=== PATIENT | female | born 1990 | race Caucasian/White ===

== ENCOUNTER 2019-09-19 22:07 | Emergency (ER) | payer OTHER ==
[2019-09-19 23:10] LABS: ABS Eosinophils 0.1 10^3/ul (0-0.6); ABS Lymphocytes 2.6 10^3/ul (1.0-4.8); ABS Monocytes 0.5 10^3/ul (0-0.8); ABS Neutrophils 7.1 10^3/ul (1.5-7.7); Eosinophil % 0.5 %; Hematocrit 32 % (35-47); Hemoglobin 11.5 g/dL (12.0-16.0); Lymphocyte % 25.6 %; Mean Corpuscular HGB Conc 35 g/dL (31-36); Mean Corpuscular Hemoglobin 33 pg (27-31); Mean Corpuscular Volume 93 fL (80-97); Nucleated Red Blood Cells % 0.1; Platelet Count 268 10^3/uL (150-450); Red Blood Count 3.47 10^6 /uL (3.70-4.87); Red Cell Distribution Width 12 % (10-15); White Blood Count 10.3 10^3/uL (3.5-10.8)
[2019-09-19 23:12] LABS: Urine Appearance Turbid; Urine Bilirubin Negative (Negative); Urine Blood Negative (Negative); Urine Color Yellow; Urine Glucose Negative (Negative); Urine Ketones Negative (Negative); Urine Nitrite Negative (Negative); Urine Protein Negative (Negative); Urine Specific Gravity 1.008 (1.010-1.030); Urine Urobilinogen Negative (Negative)
[2019-09-19 23:16] LABS: INR 0.91 (0.82-1.09)
[2019-09-19 23:26] LABS: Albumin 3.7 g/dL (3.2-5.2); Albumin/Globulin Ratio 1.5 (1-3); BUN/Creatinine Ratio 20.5 (8-20); Calcium 9.3 mg/dL (8.6-10.3); EGFR African American 203.2 (>60); EGFR Non-African American 167.9 (>60); Globulin 2.5 g/dL (2-4); Potassium 3.3 mmol/L (3.5-5.0); Total Bilirubin 0.2 mg/dL (0.2-1.0); Total Protein 6.2 g/dL (6.4-8.9)
--- NOTE | 2019-09-20 00:30 | ED ---
- HPI Summary HPI Summary: 29 year old female at 15 weeks presents with vaginal discharge today. She states she saw some potential tissue in the toilet. This happened a couple times today. She had trace amount of blood when she wiped. She states she's been having occasional cramping. Denies any urinary symptoms. She denies any nausea vomiting. She has had an ultrasound for this already. She follows up with [facility] [place]. She has history of fibroids and PCOS. - History of Current Complaint Chief Complaint: EDOBProblems Stated Complaint: 15 WEEKS PREG, DISCHARGE PER PT Time Seen by Provider: 09/19/19 22:45 Pain Intensity: 0 - Allergies/Home Medications Allergies/Adverse Reactions: Allergies Allergy/AdvReac Type Severity Reaction Status Date / Time No Known Allergies Allergy Verified 09/19/19 22:13 PMH/Surg Hx/FS Hx/Imm Hx Endocrine/Hematology History: Denies: Hx Anticoagulant Therapy Respiratory History: Denies: Hx Asthma Infectious Disease History: No Infectious Disease History: Denies: Traveled Outside the [place] in Last 30 Days - Family History Known Family History: Positive: Non-Contributory - Social History Alcohol Use: Occasionally Alcohol Amount: before Substance Use Type: Reports: None Smoking Status (MU): Never Smoked Tobacco Review of Systems Negative: Fever Negative: Chest Pain Negative: Shortness Of Breath Positive: Abdominal Pain, Other - vaginal discharge All Other Systems Reviewed And Are Negative: Yes Physical Exam - Physical Exam Triage Information Reviewed: Yes Vital Signs Reviewed: Yes Appearance: Positive: Well-Appearing Skin: Positive: Warm, Dry Head/Face: Positive: Normal Head/Face Inspection Eyes: Positive: Normal, Conjunctiva Clear ENT: Positive: Pharynx normal Respiratory/Lung Sounds: Positive: Clear to Auscultation, Breath Sounds Present Cardiovascular: Positive: Normal, RRR Abdomen Description: Positive: Nontender, Soft Bowel Sounds: Positive: Present Musculoskeletal: Positive: Normal Neurological: Positive: Normal Psychiatric: Positive: Normal Procedures - Sedation Patient Received Moderate/Deep Sedation with Procedure: No Diagnostics - Vital Signs Vital Signs Temp Pulse Resp BP Pulse Ox 09/19/19 22:08 98.7 F 102 16 134/106 99 - Laboratory Lab Results: Lab Results 09/19/19 09/19/19 09/19/19 Range/Units 22:55 22:59 22:59 WBC 10.3 (3.5-10.8) 10^3/uL RBC 3.47 L (3.70-4.87) 10^6 /uL Hgb 11.5 L (12.0-16.0) g/dL Hct 32 L (35-47) % MCV 93 (80-97) fL MCH 33 H (27-31) pg MCHC 35 (31-36) g/dL RDW 12 (10-15) % Plt Count 268 (150-450) 10^3/uL MPV 7.0 L (7.4-10.4) fL Neut % (Auto) 68.8 % Lymph % (Auto) 25.6 % Haakon % (Auto) 4.9 % Eos % (Auto) 0.5 % Baso % (Auto) 0.2 % Absolute Neuts (auto) 7.1 (1.5-7.7) 10^3/ul Absolute Lymphs (auto) 2.6 (1.0-4.8) 10^3/ul Absolute Monos (auto) 0.5 (0-0.8) 10^3/ul Absolute Eos (auto) 0.1 (0-0.6) 10^3/ul Absolute Basos (auto) 0.0 (0-0.2) 10^3/ul Absolute Nucleated RBC 0.0 10^3/ul Nucleated RBC % 0.1 INR (Anticoag Therapy) 0.91 (0.82-1.09) Sodium (135-145) mmol/L Potassium (3.5-5.0) mmol/L Chloride (101-111) mmol/L Carbon Dioxide (22-32) mmol/L Anion Gap (2-11) mmol/L BUN (6-24) mg/dL Creatinine (0.51-0.95) mg/dL Est GFR ( Amer) (>60) Est GFR (Non-Af Amer) (>60) BUN/Creatinine Ratio (8-20) Glucose (70-100) mg/dL Calcium (8.6-10.3) mg/dL Total Bilirubin (0.2-1.0) mg/dL AST (13-39) U/L ALT (7-52) U/L Alkaline Phosphatase (34-104) U/L Total Protein (6.4-8.9) g/dL Albumin (3.2-5.2) g/dL Globulin (2-4) g/dL Albumin/Globulin Ratio (1-3) Beta HCG, Quant mIU/mL Urine Color Yellow Urine Appearance Turbid Urine pH 8.0 (5-9) Ur Specific [place] 1.008 L (1.010-1.030) Urine Protein Negative (Negative) Urine Ketones Negative (Negative) Urine Blood Negative (Negative) Urine Nitrate Negative (Negative) Urine Bilirubin Negative (Negative) Urine Urobilinogen Negative (Negative) Ur Leukocyte Esterase Negative (Negative) Urine Glucose Negative (Negative) Blood Type Antibody Screen 09/19/19 09/19/19 Range/Units 22:59 22:59 WBC (3.5-10.8) 10^3/uL RBC (3.70-4.87) 10^6 /uL Hgb (12.0-16.0) g/dL Hct (35-47) % MCV (80-97) fL MCH (27-31) pg MCHC (31-36) g/dL RDW (10-15) % Plt Count (150-450) 10^3/uL MPV (7.4-10.4) fL Neut % (Auto) % Lymph % (Auto) % Haak[place] % (Auto) % Eos % (Auto) % Baso % (Auto) % Absolute Neuts (auto) (1.5-7.7) 10^3/ul Absolute Lymphs (auto) (1.0-4.8) 10^3/ul Absolute Monos (auto) (0-0.8) 10^3/ul Absolute Eos (auto) (0-0.6) 10^3/ul Absolute Basos (auto) (0-0.2) 10^3/ul Absolute Nucleated RBC 10^3/ul Nucleated RBC % INR (Anticoag Therapy) (0.82-1.09) Sodium 136 (135-145) mmol/L Potassium 3.3 L (3.5-5.0) mmol/L Chloride 104 (101-111) mmol/L Carbon Dioxide 27 (22-32) mmol/L Anion Gap 5 (2-11) mmol/L BUN 9 (6-24) mg/dL Creatinine 0.44 L (0.51-0.95) mg/dL Est GFR ( Amer) 203.2 (>60) Est GFR (Non-Af Amer) 167.9 (>60) BUN/Creatinine Ratio 20.5 H (8-20) Glucose 102 H (70-100) mg/dL Calcium 9.3 (8.6-10.3) mg/dL Total Bilirubin 0.20 (0.2-1.0) mg/dL AST 16 (13-39) U/L ALT 21 (7-52) U/L Alkaline Phosphatase 61 (34-104) U/L Total Protein 6.2 L (6.4-8.9) g/dL Albumin 3.7 (3.2-5.2) g/dL Globulin 2.5 (2-4) g/dL Albumin/Globulin Ratio 1.5 (1-3) Beta HCG, Quant 41531.00 mIU/mL Urine Color Urine Appearance Urine pH (5-9) Ur Specific [place] (1.010-1.030) Urine Protein (Negative) Urine Ketones (Negative) Urine Blood (Negative) Urine Nitrate (Negative) Urine Bilirubin (Negative) Urine Urobilinogen (Negative) Ur Leukocyte Esterase (Negative) Urine Glucose (Negative) Blood Type O Positive Antibody Screen Negative Result Diagrams: 09/19/19 22:59 09/19/19 22:59 Lab Statement: Any lab studies that have been ordered have been reviewed, and results considered in the medical decision making process. - Ultrasound No standard instances Ultrasound Interpretation Completed By: Radiologist Summary of Ultrasound Findings: IMPRESSION: Single live intrauterine corresponding with 15 weeks 1 day with LUIS ENRIQUE of 03/14/20, concordant with LMP. Cervical funneling is seen. Cervix measures 2.7 cm. Re-Evaluation - Re-Evaluation First Eval Comment: still comfortable Second Eval Re-Evaluation Time: 02:10 Comment: no pain currently Course/Dx - Course Course Of Treatment: 29 year old female at 15 weeks presents with vaginal discharge today. She states she saw some potential tissue in the toilet. This happened a couple times today. She had trace amount of blood when she wiped. She states she's been having occasional cramping. Denies any urinary symptoms. She denies any nausea vomiting. She has had an ultrasound for this already. She follows up with [facility] [place]. On exam has nontender abdomen. Blood type is O+. vaginal ultrasound shows iup with cervical funneling. discussed with dr valencia will not do anything tonight but needs to see ob later today. told to call for appointment. patient understand and agrees with plan. - Differential Diagnosis/HQI/PQRI: Spontaneous , Threatened , Intrauterine - Diagnoses Provider Diagnoses: Intrauterine , Cervical funneling Discharge ED - Sign-Out/Discharge Documenting (check all that apply): Patient Departure - Discharge Plan Condition: Good Disposition: HOME Forms: *Work Release Referrals: Arabella Bentley NP [Primary Care Provider] - Pipo Valencia JR, DO [Doctor of Osteopathy] - Additional Instructions: follow up with ob today, call office and tell them that you were seen in the ER and dr valencia says need to have appointment today pelvic rest until seen on ob Return to ED if develop any new or worsening symptoms - Billing Disposition and Condition Condition: GOOD Disposition: Home
[2019-09-20 02:22] VITALS: BP 111/79
== END 2019-09-20 02:19 | disposition home or self-care (01) ==
LOC: ED 22:07
DX: O26.872 Cervical shortening, second trimester (principal); Z3A.15 15 weeks gestation of pregnancy
CPT/HCPCS: 36415; 76815; 80053; 81003; 84702; 85025; 85610; 86850; 86900; 86901; 99282

== ENCOUNTER 2020-03-09 17:46 | Inpatient (IN) ==
[2020-03-09] MEDS ORDERED: Lactated Ringers 1000 ml BAG 1,000 ML IV ONE (19:32)
[2020-03-10 08:04] LABS: Urine Benzodiazepine Screen None Detected (None Detect); Urine Opiates Screen None Detected (None Detect)
[2020-03-10] MEDS ORDERED: Oxytocin in LR 20 UNITS/1,000 ML BAG IVPB SCH (10:00)
[2020-03-10 10:02] LABS: ABS Lymphocytes 1.8 10^3/ul (1.0-4.8); ABS Monocytes 0.4 10^3/ul (0-0.8); Eosinophil % 0.4 %; Hematocrit 34 % (35-47); Lymphocyte % 19.6 %; Mean Corpuscular HGB Conc 35 g/dL (31-36); Mean Corpuscular Hemoglobin 32 pg (27-31); Mean Corpuscular Volume 92 fL (80-97); Mean Platelet Volume 8.3 fL (7.4-10.4); Nucleated Red Blood Cells % 0.1; Platelet Count 212 10^3/uL (150-450); Red Blood Count 3.71 10^6 /uL (3.70-4.87); Red Cell Distribution Width 14 % (10-15); White Blood Count 9.2 10^3/uL (3.5-10.8)
[2020-03-10] MEDS: Lactated Ringers 1000 ml BAG 1,000 ML IV SCH ×2 (10:04→19:46)
[2020-03-10] MEDS ORDERED: OBEPIDURAL 250 ML EPIDURAL ONE (18:30)
[2020-03-10] MEDS ORDERED: Sodium Citrate/Citric Acid LIQ 15 ML UDC PO PRN (18:31)
[2020-03-10] MEDS ORDERED: Phenylephrine 40 mcg/mL 10mL (400mcg) SYRINGE IV PUSH PRN ×2 (18:31)
[2020-03-10] MEDS ORDERED: EPHEDrine (Pressors) 50 MG/ML VIAL IV PUSH PRN ×2 (18:31)
[2020-03-10] MEDS ORDERED: Lactated Ringers 1000 ml BAG 1,000 ML IV ONE (18:31)
[2020-03-10] MEDS ORDERED: OBEPIDURAL 250 ML EPIDURAL SCH (19:00)
[2020-03-10] MEDS ORDERED: Lactated Ringers 1000 ml BAG 1,000 ML IV SCH ×2 (19:00→23:00)
[2020-03-10] MEDS ORDERED: ceFOXitin 2 GM IVPREMIX (*) 2 GM/50 ML BAG ONE (20:52)
[2020-03-10] MEDS ORDERED: Lidocaine 2% PF 5 ML VIAL ONE (21:23)
[2020-03-10] MEDS ORDERED: Oxytocin 10 UNITS/ML 1 ML VIAL ONE (21:50)
[2020-03-10] MEDS ORDERED: Sodium Bicarbonate 8.4% 10 ML VIAL IV ONE (21:50)
[2020-03-10] MEDS ORDERED: Morphine PF AMP (0.5MG/ML) 5 MG/10 ML AMP ONE (21:54)
[2020-03-10] MEDS ORDERED: Phenylephrine 40 mcg/mL 10mL (400mcg) SYRINGE ONE (22:19)
[2020-03-10] MEDS ORDERED: Naloxone 0.4 mg VIAL 0.4 mg/ml 1 ml VIAL IV PRN ×2 (23:38→23:39)
[2020-03-10] MEDS ORDERED: Ondansetron 4 mg VIAL 2 MG/ML 2 ml VIAL IV PRN (23:39)
[2020-03-10] MEDS ORDERED: diPHENhydraMINE IV 50 MG/ML 1 ml VIAL (BENADRYL) IV PRN (23:39)
[2020-03-10] MEDS ORDERED: Naloxone 4 mg VIAL (10 ml) 2 MG in NS 0.9% 250 ml 250 ML IV PRN (23:39)
[2020-03-11 06:57] LABS: ABS Lymphocytes 1.7 10^3/ul (1.0-4.8); ABS Monocytes 0.6 10^3/ul (0-0.8); Eosinophil % 0.3 %; Hematocrit 28 % (35-47); Hemoglobin 10.3 g/dL (12.0-16.0); Lymphocyte % 16.7 %; Mean Corpuscular HGB Conc 36 g/dL (31-36); Mean Corpuscular Hemoglobin 34 pg (27-31); Mean Corpuscular Volume 93 fL (80-97); Mean Platelet Volume 8.1 fL (7.4-10.4); Platelet Count 161 10^3/uL (150-450); Red Blood Count 3.05 10^6 /uL (3.70-4.87); Red Cell Distribution Width 14 % (10-15); White Blood Count 10.4 10^3/uL (3.5-10.8)
[2020-03-13 08:26] VITALS: BP 114/74
== END 2020-03-13 11:30 | disposition home or self-care (01) | DRG 788 ==
LOC: MCHOBOUT 17:46 → MCHOB 18:21
PROVIDERS: ADMIT Obstetrics & Gynecology; ATTEND Obstetrics & Gynecology

== ENCOUNTER 2022-09-30 07:45 | Inpatient (IN) ==
[2022-10-04 06:32] LABS: ABS Lymphocytes 2.6 10^3/ul (1.0-4.8); ABS Monocytes 0.5 10^3/ul (0-0.8); ABS Neutrophils 7.2 10^3/ul (1.5-7.7); Eosinophil % 0.4 %; Hematocrit 36 % (35-47); Hemoglobin 12.5 g/dL (12.0-16.0); Lymphocyte % 24.9 %; Mean Corpuscular HGB Conc 35 g/dL (31-36); Mean Corpuscular Hemoglobin 32 pg (27-31); Mean Corpuscular Volume 92 fL (80-97); Nucleated Red Blood Cells % 0.1; Platelet Count 184 10^3/uL (150-450); Red Cell Distribution Width 14 % (10-15); White Blood Count 10.3 10^3/uL (3.5-10.8)
[2022-10-04] MEDS ORDERED: ceFOXitin 2 GM PREMIX 50 ML IVPB ONE (08:00)
[2022-10-04] MEDS ORDERED: Lactated Ringers 1000 ml BAG 1,000 ML IV ONE (08:35)
[2022-10-04] MEDS ORDERED: Buffered Lidocaine 1% SYRIN 1 ml INTRADERM ONE (08:35)
[2022-10-04] MEDS ORDERED: Lactated Ringers 1000 ml BAG 1,000 ML IV SCH ×2 (09:00→12:00)
[2022-10-04] MEDS ORDERED: Morphine PF AMP (0.5MG/ML) 5 MG/10 ML AMP ONE (09:06)
[2022-10-04] MEDS ORDERED: Oxytocin 10 UNITS/ML 1 ML VIAL ONE ×2 (09:07→09:55)
[2022-10-04] MEDS ORDERED: Sodium Citrate/Citric Acid LIQ 15 ML UDC ONE (09:07)
[2022-10-04] MEDS ORDERED: Bupivacaine 0.5% SDV PF 30ML VIAL ONE (09:07)
[2022-10-04] MEDS ORDERED: Phenylephrine 40 mcg/mL 10mL (400mcg) SYRINGE ONE (09:28)
[2022-10-04] MEDS ORDERED: Ondansetron 4 mg VIAL 2 MG/ML 2 ml VIAL ONE (09:55)
[2022-10-04] MEDS ORDERED: Dexamethasone IV 4 MG/ML VIAL 1 ml VIAL ONE (09:55)
[2022-10-04] MEDS ORDERED: Naloxone 0.4 mg VIAL 0.4 mg/ml 1 ml VIAL IV PRN (10:00)
[2022-10-04] MEDS ORDERED: fentaNYL 100 mcg/2 ml 50 MCG/ML VIAL IV PRN (10:00)
[2022-10-04] MEDS ORDERED: Naloxone 0.4 mg VIAL 0.4 mg/ml 1 ml VIAL IV PUSH PRN (10:02)
[2022-10-04] MEDS ORDERED: Metoclopramide 5 MG/ML VIAL (10 mg) IV PRN (10:02)
[2022-10-04] MEDS ORDERED: Acetaminophen IV 1 GM/100ML 1,000 MG/100 ML BAG IV PRN (10:02)
[2022-10-04] MEDS ORDERED: Ondansetron 4 mg VIAL 2 MG/ML 2 ml VIAL IV PRN (10:02)
[2022-10-04] MEDS ORDERED: Acetaminophen IV 1 GM/100ML 1,000 MG/100 ML BAG IV ONE (10:04)
[2022-10-04 10:59] LABS: Urine Appearance Cloudy; Urine Bilirubin Negative (Negative); Urine Blood Negative (Negative); Urine Color Yellow; Urine Glucose Negative (Negative); Urine Ketones Trace (Negative); Urine Nitrite Negative (Negative); Urine Protein Negative (Negative); Urine Specific Gravity 1.011 (1.002-1.030); Urine Urobilinogen Negative (Negative)
[2022-10-04] MEDS ORDERED: Dibucaine 1% OINT 28.35 GM TUBE PR PRN (11:13)
[2022-10-04] MEDS ORDERED: Witch Hazel PAD JAR TOPICAL PRN (11:13)
[2022-10-04] MEDS ORDERED: Glycerin ADULT 2.4 gm SUPP PR PRN (11:13)
[2022-10-04] MEDS ORDERED: Oxytocin in LR 20,000 MILLI.UNIT/1,000 ML BAG IV SCH (11:15)
[2022-10-04 11:23] LABS: Urine Benzodiazepine Screen None Detected (None Detect); Urine Cannabinoids Screen None Detected (None Detect); Urine Opiates Screen None Detected (None Detect)
[2022-10-05 06:56] LABS: ABS Lymphocytes 2.6 10^3/ul (1.0-4.8); ABS Monocytes 0.6 10^3/ul (0-0.8); ABS Neutrophils 8.5 10^3/ul (1.5-7.7); Eosinophil % 0.3 %; Hematocrit 31 % (35-47); Hemoglobin 10.6 g/dL (12.0-16.0); Mean Corpuscular HGB Conc 35 g/dL (31-36); Mean Corpuscular Hemoglobin 32 pg (27-31); Mean Corpuscular Volume 93 fL (80-97); Mean Platelet Volume 7.8 fL (7.4-10.4); Platelet Count 148 10^3/uL (150-450); Red Blood Count 3.29 10^6 /uL (3.70-4.87); Red Cell Distribution Width 14 % (10-15); White Blood Count 11.8 10^3/uL (3.5-10.8)
[2022-10-05] MEDS: DOCOSAHEXAENOIC ACID 200 MG PO SCH (19:25)
[2022-10-05] MEDS: diPHENhydraMINE CREAM 2%(NF) 28 gm TUBE TOPICAL SCH (21:26)
[2022-10-06 08:35] VITALS: BP 105/65
[2022-10-06] MEDS: diPHENhydraMINE CREAM 2%(NF) 28 gm TUBE TOPICAL SCH (09:03)
[2022-10-06] MEDS: DOCOSAHEXAENOIC ACID 200 MG PO SCH (09:04)
== END 2022-10-06 13:22 | disposition home or self-care (01) | DRG 788 ==
LOC: MCHOB 10-04 05:28
PROVIDERS: ADMIT Obstetrics & Gynecology; ATTEND Obstetrics & Gynecology